=== PATIENT | female | born 1980 | race Caucasian/White ===

== ENCOUNTER 2020-08-03 16:52 | Emergency (ER) | payer MEDICAID ==
[~2020-08-03] VITALS: Ht 160 cm; Wt 81.8 kg
[~2020-08-03 16:52] MED LIST: GUAI236S16 PO; IBUP-1984 PO; PRED20TA PO
[2020-08-03] MEDS ORDERED: normal saline 1000ml 1,000 ML IV ONE ×2 (17:10→18:15)
[2020-08-03] MEDS ORDERED: adenosine 3mg/ml 2ml vial IV ONE (17:10)
[2020-08-03] MEDS ORDERED: magnesium 2GM in 50ml NS 50 ML IV ONE (17:15)
[2020-08-03] MEDS ORDERED: LORazepam 2 mg/ml vial IV ONE (17:15)
[2020-08-03] MEDS ORDERED: ondansetron/PF 4mg/2ml inj IV ONE (17:15)
[2020-08-03] MEDS ORDERED: diltiazem 5mg/ml 5ml inj. IV ONE (17:20)
[2020-08-03 17:40] LABS: BASOPHILS # (AUTO) 0.1 X10'3 (0-0.2); BASOPHILS % (AUTO) 0.4 % (0-1); EOSINOPHILS # (AUTO) 0.1 X10'3 (0-0.9); EOSINOPHILS % (AUTO) 0.4 % (0-6); HEMATOCRIT 50.2 % (35.0-45.0); HEMOGLOBIN 16.4 g/dl (12.0-16.0); LYMPHOCYTES # (AUTO) 2.8 X10'3 (1.1-4.8); LYMPHOCYTES % (AUTO) 17.1 % (21-51); MEAN CORPUSCULAR HEMOGLOBIN 30.2 PG (27.0-31.0); MEAN CORPUSCULAR HGB CONC 32.6 g/dL (33.0-36.5); MEAN CORPUSCULAR VOLUME 92.6 FL (78-98); MEAN PLATELET VOLUME 7.8 FL (7.4-10.4); MONOCYTES # (AUTO) 0.7 X10'3 (0-0.9); MONOCYTES % (AUTO) 4.6 % (2-12); NEUTROPHILS # (AUTO) 12.5 X10'3 (1.8-7.7); NEUTROPHILS % (AUTO) 77.5 % (42-75); PLATELET COUNT 538 X10'3 (140-440); RED BLOOD COUNT 5.42 X10'6 (4.20-5.60); RED CELL DISTRIBUTION WIDTH 17.5 % (11.5-14.5); WHITE BLOOD COUNT 16.1 X10'3 (4.5-11.0)
[2020-08-03 17:54] LABS: ALANINE AMINOTRANSFERASE 43 U/L (12-78); ALBUMIN 4.5 G/DL (3.4-5.0); ALKALINE PHOSPHATASE 127 IU/L (46-116); ANION GAP 13 (8-16); ASPARTATE AMINO TRANSFERASE 36 U/L (10-37); BILIRUBIN,TOTAL 0.5 MG/DL (0.1-1.0); BLOOD UREA NITROGEN 9 MG/DL (7-18); BUN/CREATININE RATIO 7.7 (6.6-38.0); CALCIUM 9.7 MG/DL (8.5-10.1); CHLORIDE 101 MMOL/L (99-107); CREATININE 1.17 MG/DL (0.40-0.90); GLUCOSE 250 MG/DL (70-104); MAGNESIUM 2.3 MG/DL (1.5-2.4); POTASSIUM 3.4 MMOL/L (3.5-5.1); SODIUM 138 MMOL/L (135-145); TOTAL CARBON DIOXIDE 24.5 MMOL/L (24-32); TOTAL PROTEIN 8.9 G/DL (6.4-8.2); eGFR 52 ML/MIN
[2020-08-03 18:37] LABS: URINE HCG NEGATIVE (NEG)
[2020-08-03 18:41] LABS: CLARITY,URINE CLEAR (Clear); COLOR,URINE YELLOW (Yellow); GLUCOSE, URINE NEGATIVE (Neg); KETONES,URINE NEGATIVE (Neg); LEUKOCYTE ESTERASE ,URINE NEGATIVE (Neg); NITRITES, URINE NEGATIVE (Neg); OCCULT BLOOD,URINE TRACE-INTACT (Neg); PROTEIN,URINE 30 mg/dl (Neg); UROBILINOGEN,URINE 0.2 E.U/dL (0.2-1.0)
[2020-08-03 18:48] LABS: UA COLLECTION TYPE CLN CATCH MIDSTREAM; URINE AMPHETAMINE SCREEN NEGATIVE (Neg); URINE BARBITUATE SCREEN NEGATIVE (Neg); URINE BENZODIAZEPINES SCREEN NEGATIVE (Neg); URINE CANNABINOID SCREEN POSITIVE (Neg); URINE COCAINE SCREEN NEGATIVE (Neg); URINE METHADONE SCREEN NEGATIVE (Neg); URINE OPIATE SCREEN NEGATIVE (Neg); URINE PHENCYCLIDINE SCREEN NEGATIVE (Neg)
[2020-08-03 18:49] LABS: BACTERIA,URINE NONE SEEN /HPF (Neg); HYALINE CASTS 0-3 /LPF (NEGATIVE); RBC,URINE 0-2 /HPF (0-2); SQUAMOUS EPITHELIAL CELL,UR FEW /LPF (FEW); WBC,URINE NONE SEEN /HPF (0-4)
[2020-08-03 19:44] VITALS: BP 116/81
== END 2020-08-03 20:03 | disposition home or self-care (01) ==
LOC: ER 16:53
DX: I47.1 Supraventricular tachycardia (principal); J45.909 Unspecified asthma, uncomplicated; F12.90 Cannabis use, unspecified, uncomplicated; Z72.89 Other problems related to lifestyle; Z98.51 Tubal ligation status; Z98.890 Other specified postprocedural states
CPT/HCPCS: 36415; 71045; 80053; 80305; 81001; 81025; 83735; 84443; 84484; 85025; 93005; 96361; 96365; 96375; 99285; J2060; J2405; J3475; J7030; J3490

== ENCOUNTER 2020-12-04 09:08 | Emergency (ER) | payer MEDICAID ==
[~2020-12-04] VITALS: Ht 157.5 cm; Wt 82.4 kg
[2020-12-04 09:11] VITALS: BP 160/101
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
[2020-12-04] MEDS ORDERED: orphenadrine citrate 60mg/2ml inj. IM ONE (10:10)
[2020-12-04] MEDS ORDERED: ketorolac tromethamine 15mg/ml inj. IM ONE (10:10)
== END 2020-12-04 11:06 | disposition home or self-care (01) ==
LOC: ER 09:08
DX: S00.83XA Contusion of other part of head, initial encounter (principal); S20.212A Contusion of left front wall of thorax, initial encounter; R07.81 Pleurodynia; M54.89 Other dorsalgia; J45.909 Unspecified asthma, uncomplicated; F17.210 Nicotine dependence, cigarettes, uncomplicated; F12.90 Cannabis use, unspecified, uncomplicated; Z98.51 Tubal ligation status; Z98.890 Other specified postprocedural states; Z72.89 Other problems related to lifestyle; Z79.899 Other long term (current) drug therapy; X58.XXXA Exposure to other specified factors, initial encounter; Y93.89 Activity, other specified; Y92.89 Other specified places as the place of occurrence of the external cause; Y99.8 Other external cause status; Y09 Assault by unspecified means
CPT/HCPCS: 70150; 71045; 96372; 99284; J1885; J2360

== ENCOUNTER 2021-03-25 08:19 | Emergency (ER) | payer SELFPAY ==
[~2021-03-25] VITALS: Ht 157.5 cm; Wt 80.0 kg
[2021-03-25 08:21] VITALS: BP 135/73
[2021-03-25 09:15] LABS: BASOPHILS % (AUTO) 0.3 % (0-1); EOSINOPHILS # (AUTO) 0.2 X10'3 (0-0.9); EOSINOPHILS % (AUTO) 1.7 % (0-6); HEMATOCRIT 41.7 % (35.0-45.0); LYMPHOCYTES # (AUTO) 1.5 X10'3 (1.1-4.8); LYMPHOCYTES % (AUTO) 13.9 % (21-51); MEAN CORPUSCULAR HEMOGLOBIN 32.9 PG (27.0-31.0); MEAN CORPUSCULAR HGB CONC 33.6 g/dL (33.0-36.5); MEAN CORPUSCULAR VOLUME 97.9 FL (78-98); MEAN PLATELET VOLUME 8.1 FL (7.4-10.4); MONOCYTES # (AUTO) 1.1 X10'3 (0-0.9); NEUTROPHILS # (AUTO) 8.1 X10'3 (1.8-7.7); NEUTROPHILS % (AUTO) 74.1 % (42-75); PLATELET COUNT 325 X10'3 (140-440); RED BLOOD COUNT 4.26 X10'6 (4.20-5.60); RED CELL DISTRIBUTION WIDTH 14.2 % (11.5-14.5)
[2021-03-25 10:13] LABS: ALANINE AMINOTRANSFERASE 30 U/L (12-78); ALBUMIN 3.8 G/DL (3.4-5.0); ALBUMIN/GLOBULIN RATIO 1.1 (1.1-1.5); ALKALINE PHOSPHATASE 87 IU/L (46-116); ANION GAP 14 (8-16); ASPARTATE AMINO TRANSFERASE 23 U/L (10-37); BILIRUBIN,TOTAL 0.3 MG/DL (0.1-1.0); BLOOD UREA NITROGEN 13 MG/DL (7-18); BUN/CREATININE RATIO 15.7 (6.6-38.0); CALCIUM 9.2 MG/DL (8.5-10.1); CHLORIDE 104 MMOL/L (99-107); CREATININE 0.83 MG/DL (0.40-0.90); GLUCOSE 93 MG/DL (70-104); LIPASE 157 U/L (73-393); POTASSIUM 4.1 MMOL/L (3.5-5.1); SODIUM 140 MMOL/L (135-145); TOTAL CARBON DIOXIDE 22.1 MMOL/L (24-32); TOTAL PROTEIN 7.4 G/DL (6.4-8.2); eGFR 77 ML/MIN
[2021-03-25 11:04] LABS: CLARITY,URINE CLOUDY (Clear); COLOR,URINE YELLOW (Yellow); GLUCOSE, URINE NEGATIVE (Neg); KETONES,URINE NEGATIVE (Neg); LEUKOCYTE ESTERASE ,URINE SMALL (Neg); NITRITES, URINE NEGATIVE (Neg); OCCULT BLOOD,URINE MODERATE (Neg); PROTEIN,URINE NEGATIVE (Neg); UROBILINOGEN,URINE 0.2 E.U/dL (0.2-1.0)
[2021-03-25 11:05] LABS: URINE HCG NEGATIVE (NEG)
[2021-03-25 11:07] LABS: UA COLLECTION TYPE NON-SPECIFIED
[2021-03-25 11:25] LABS: SQUAMOUS EPITHELIAL CELL,UR FEW /LPF (FEW)
[2021-03-25 11:26] LABS: BACTERIA,URINE 2+ /HPF (Neg)
[2021-03-25 11:28] LABS: RBC,URINE 0-2 /HPF (0-2)
[2021-03-25 11:29] LABS: COARSE GRANULAR CAST 0-3 /LPF (NEGATIVE)
[2021-03-25 11:31] LABS: AMORPHOUS PHOSPHATES 2+
== END 2021-03-25 12:17 | disposition home or self-care (01) ==
LOC: ER 08:20
DX: R10.30 Lower abdominal pain, unspecified (principal); N83.209 Unspecified ovarian cyst, unspecified side; N89.8 Other specified noninflammatory disorders of vagina; J45.909 Unspecified asthma, uncomplicated; F12.90 Cannabis use, unspecified, uncomplicated; Z85.41 Personal history of malignant neoplasm of cervix uteri; Z98.51 Tubal ligation status; Z98.890 Other specified postprocedural states; Z72.89 Other problems related to lifestyle; Z79.899 Other long term (current) drug therapy
CPT/HCPCS: 36415; 76830; 76856; 80053; 81001; 81025; 83690; 85025; 87088; 93976; 99284

== ENCOUNTER 2024-06-24 20:08 | Emergency (ER) | payer MEDICAID ==
[~2024-06-24] VITALS: Ht 157.5 cm; Wt 98.6 kg
[~2024-06-24 20:08] MED LIST changes: +ALBU6.7H14 INH; +ASPI-130; -GUAI236S16 PO; -IBUP-1984 PO; -PRED20TA PO
[2024-06-24] MEDS ORDERED: ERYT1OIN6 EACHEYE (20:41)
[2024-06-24] MEDS: erythromycin ophthalmic ointment 1gm tube LEFTEYE ONE (20:42)
[2024-06-24] MEDS: proparacaine 0.5% ophthalmic drops 15ml LEFTEYE ONE (20:42)
[2024-06-24 21:06] VITALS: BP 134/76; PULSE 87; RESP 18; TEMP 98.3; O2SAT 99
== END 2024-06-24 21:08 | disposition home or self-care (01) ==
LOC: ER 20:08
DX: H10.89 Other conjunctivitis (principal); F12.90 Cannabis use, unspecified, uncomplicated; J45.909 Unspecified asthma, uncomplicated; Z88.8 Allergy status to other drugs, medicaments and biological substances; Z98.51 Tubal ligation status; Z98.890 Other specified postprocedural states; Z85.89 Personal history of malignant neoplasm of other organs and systems
CPT/HCPCS: 99283

== ENCOUNTER 2024-08-07 01:53 | Emergency (ER) | payer MEDICAID ==
[~2024-08-07] VITALS: Ht 157.5 cm; Wt 95.0 kg
[2024-08-07] MEDS ORDERED: LIDO700A32 TOP (16:51)
== END 2024-08-07 02:10 ==
LOC: ER 01:58
DX: Z02.89 Encounter for other administrative examinations (principal); J45.909 Unspecified asthma, uncomplicated; F12.90 Cannabis use, unspecified, uncomplicated; Z88.5 Allergy status to narcotic agent; Z85.41 Personal history of malignant neoplasm of cervix uteri; Z98.51 Tubal ligation status
CPT/HCPCS: 99283

== ENCOUNTER 2024-08-07 15:24 | Emergency (ER) | payer MEDICAID ==
[~2024-08-07] VITALS: Ht 157.5 cm; Wt 99.2 kg
[2024-08-07 15:28] VITALS: BP 159/85; PULSE 109; RESP 18; O2SAT 98
[2024-08-07] MEDS ORDERED: LIDO700A32 TOP (16:51)
[2024-08-07 17:04] VITALS: TEMP 97.9
== END 2024-08-07 17:09 | disposition home or self-care (01) ==
LOC: ER 15:24
DX: S86.911A Strain of unspecified muscle(s) and tendon(s) at lower leg level, right leg, initial encounter (principal); S60.212A Contusion of left wrist, initial encounter; S60.211A Contusion of right wrist, initial encounter; S90.31XA Contusion of right foot, initial encounter; S90.32XA Contusion of left foot, initial encounter; J45.909 Unspecified asthma, uncomplicated; F12.90 Cannabis use, unspecified, uncomplicated; Z88.5 Allergy status to narcotic agent; Z79.899 Other long term (current) drug therapy; Z98.51 Tubal ligation status; Z85.41 Personal history of malignant neoplasm of cervix uteri; Y93.89 Activity, other specified; Y92.89 Other specified places as the place of occurrence of the external cause; Y99.8 Other external cause status; W23.0XXA Caught, crushed, jammed, or pinched between moving objects, initial encounter
CPT/HCPCS: 29125; 29260; 73130; 73564; 73630; 99284

== ENCOUNTER 2024-11-24 09:20 | Day surgery (SDC) | payer MEDICAID ==
[2024-11-18 11:46] LABS: BASOPHILS # (AUTO) 0.1 X10'3 (0-0.2); BASOPHILS % (AUTO) 0.9 % (0-1); EOSINOPHILS # (AUTO) 0.1 X10'3 (0-0.9); EOSINOPHILS % (AUTO) 1.3 % (0-6); LYMPHOCYTES # (AUTO) 2.6 X10'3 (1.1-4.8); LYMPHOCYTES % (AUTO) 28.5 % (21-51); MEAN CORPUSCULAR HEMOGLOBIN 31.5 PG (27.0-31.0); MEAN CORPUSCULAR HGB CONC 33.8 g/dL (33.0-36.5); MEAN CORPUSCULAR VOLUME 93.2 FL (78-98); MEAN PLATELET VOLUME 8.2 FL (7.4-10.4); MONOCYTES # (AUTO) 0.8 X10'3 (0-0.9); MONOCYTES % (AUTO) 9.1 % (2-12); NEUTROPHILS # (AUTO) 5.6 X10'3 (1.8-7.7); NEUTROPHILS % (AUTO) 60.2 % (42-75); PRE OP HEMATOCRIT 41.5 % (35.0-45.0); PRE OP PLATELET COUNT 412 X10'3 (140-440); PRE OP WHITE BLOOD COUNT 9.3 10'3 (4.8-10.8); RED BLOOD COUNT 4.45 X10'6 (4.20-5.60); RED CELL DISTRIBUTION WIDTH 15.4 % (11.5-14.5)
[2024-11-18 11:54] LABS: ALBUMIN 3.8 G/DL (3.4-5.0); ALKALINE PHOSPHATASE 86 IU/L (46-116); BLOOD UREA NITROGEN 9 MG/DL (7-18); BUN/CREATININE RATIO 9.4 (10.0-20.0); CALCIUM 8.5 MG/DL (8.5-10.1); CHLORIDE 105 MMOL/L (99-107); CREATININE 0.96 MG/DL (0.40-0.90); PRE OP ALT 46 U/L (30-65); PRE OP ANION GAP 9 (8-16); PRE OP AST 21 U/L (10-37); PRE OP BILIRUB, TOTAL 0.3 MG/DL (0.0-1.0); PRE OP GLUCOSE 98 MG/DL (70-104); PRE OP POTASSIUM 4.2 MMOL/L (3.4-5.1); PRE OP SODIUM 139 MMOL/L (135-145); TOTAL CARBON DIOXIDE 24.8 MMOL/L (24-32); TOTAL PROTEIN 7.7 G/DL (6.4-8.2); eGFR 63 ML/MIN
[~2024-11-24] VITALS: Ht 157.5 cm; Wt 98.8 kg
[2024-11-24] VITALS (7 sets, daily range): BP systolic 123–145; BP diastolic 77–91; PULSE 69–100; RESP 14–18; TEMP 98.6–98.8; O2SAT 97–99
[2024-11-24] MEDS: ceFAZolin 2gm in dextrose, iso 50 ML IV ONE (05:30)
[~2024-11-24 09:20] MED LIST changes: +BUPIVAcaine 2.5mg/ml inj 50ml vial (contains preservative) ONE; +IBUP-1985 PO; +IRON; +LIDOcaine 1% 30ml preserv. free vial ONE; +MVI
[2024-11-24] MEDS: INDOCYANINE GREEN 25 MG/10 ML VIAL IV ONE (10:05)
[2024-11-24] MEDS: ringers solution, lacted 1,000 ML IV SCH ×2 (10:05→12:40)
[2024-11-24] MEDS: famotidine 20mg tablet PO ONE (10:05)
[2024-11-24] MEDS ORDERED: sevoflurane 250ml liquid IH ONE (11:16)
[2024-11-24] MEDS ORDERED: ondansetron/PF 4mg/2ml inj IV PRN (11:20)
[2024-11-24] MEDS ORDERED: labetalol 20mg/4ml (5mg/ml) syringe IV PRN (11:20)
[2024-11-24] MEDS ORDERED: hydrALAZINE 20mg/ml inj. IV PRN (11:20)
[2024-11-24] MEDS ORDERED: HYDROmorphone/PF 0.2 MG/ML SYRINGE IV PRN ×2 (11:20)
[2024-11-24] MEDS ORDERED: morphine 2 MG/ML inj. syringe IV PRN (11:20)
[2024-11-24] MEDS ORDERED: meperidine/PF 25mg/ml syringe IV PRN (11:20)
[2024-11-24] MEDS ORDERED: proCHLORperazine 10 MG/2 ml inj IV PRN (11:20)
[2024-11-24] MEDS ORDERED: morphine 4 MG/ML inj SYRINge IV PRN (11:20)
[2024-11-24] MEDS ORDERED: fentaNYL /PF 50mcg/ml 5ml ampule ONE (11:23)
[2024-11-24] MEDS ORDERED: midazolam 1 mg/ML 2ml injection ONE (11:23)
[2024-11-24] MEDS ORDERED: propofol inj 20 ML IV ONE (11:49)
[2024-11-24] MEDS ORDERED: LIDOcaine 2% (20mg/ml) 5ml vial ONE (11:50)
[2024-11-24] MEDS ORDERED: rocuronium 10mg/ml inj IV ONE (11:50)
[2024-11-24] MEDS ORDERED: ondansetron/PF 4mg/2ml inj ONE (11:50)
[2024-11-24] MEDS: BUPIVAcaine 2.5mg/ml inj 50ml vial (contains preservative) SQ ONE (12:06)
[2024-11-24] MEDS ORDERED: neostigmine methylsulfate 1 MG/ML 10ml vial ONE (12:25)
[2024-11-24] MEDS ORDERED: glycopyrrolate 0.2mg/ml inj ONE (12:25)
[2024-11-24] MEDS: acetaminophen 1,000mg/100ml IV 100 ML IV ONE (12:41)
[2024-11-24] MEDS ORDERED: oxyCODONE/APAP 5-325mg tablet PO PRN (12:55)
[2024-11-24] MEDS ORDERED: ondansetron 4mg rapidly disintigrating tab PO PRN (12:55)
== END 2024-11-24 13:44 | disposition home or self-care (01) ==
LOC: PAS 09:20
PROVIDERS: ATTEND Surgery
DX: K80.10 Calculus of gallbladder with chronic cholecystitis without obstruction (principal); I10 Essential (primary) hypertension; G43.909 Migraine, unspecified, not intractable, without status migrainosus; F41.9 Anxiety disorder, unspecified; F32.A Depression, unspecified; Z79.899 Other long term (current) drug therapy; Z88.5 Allergy status to narcotic agent; Z88.8 Allergy status to other drugs, medicaments and biological substances
CPT/HCPCS: 36415; 47563; 80053; 82948; 85025; 93005; J0131; J0690; J1100; J2003; J2250; J2405; J2704; J2710; J3010; J3490; J7030; J7120; S2900; Z7506; Z7508; Z7512; A4215; A4618; A7000